=== PATIENT | male | born 1990 | race Hispanic/Latino ===

== ENCOUNTER 2022-05-12 18:05 | Emergency (ER) | payer MEDICAID, OTHER ==
[~2022-05-12] VITALS: Ht 177.8 cm; Wt 104.3 kg
[2022-05-12 18:23] VITALS: BP 138/91
[2022-05-12 19:00] LABS: BASOPHILS % (AUTO) 0.4 % (0.0-5.0); HEMATOCRIT 42.2 % (42-54); LYMPHOCYTES % (AUTO) 44.8 % (21.0-51.0); MEAN CORPUSCULAR HGB CONC 33.6 g/dL (32.0-36.0); MEAN CORPUSCULAR VOLUME 86.1 fL (79-99); MONOCYTES % (AUTO) 8.9 % (3.0-13.0); NEUTROPHILS % (AUTO) 44.6 % (40.0-77.0); PLATELET COUNT (AUTO) 253 K/uL (130-400); RED CELL DISTRIBUTION WIDTH 12.5 % (11.0-15.5); WHITE BLOOD COUNT (AUTO) 7.1 K/uL (4.8-10.8)
[2022-05-12] MEDS ORDERED: LACTATED RINGERS 1000ML 1,000 ML IV ONE (19:00)
[2022-05-12] MEDS ORDERED: KETOROLAC 15MG/ML VIAL (15MG/ML) IV ONE (19:00)
[2022-05-12] MEDS ORDERED: ZOSYN 3.375GM +NS 50ML IVPB ONE (19:00)
[2022-05-12] MEDS ORDERED: IOHEXOL 350 MG/ML 100ML INFUS..BTL IV ONE (19:18)
[2022-05-12 19:24] LABS: APPEARANCE,URINE CLEAR (CLEAR); BILIRUBIN,URINE NEGATIVE (NEGATIVE); COLOR,URINE LIGHT-YELLOW (YELLOW); GLUCOSE, URINE (UA) NEGATIVE (NEGATIVE); KETONES,URINE NEGATIVE (NEGATIVE); LEUKOCYTE ESTERASE ,URINE NEGATIVE Leu/uL (NEGATIVE); NITRATE,URINE NEGATIVE (NEGATIVE); OCCULT BLOOD,URINE NEGATIVE (NEGATIVE); PH,URINE 6.5 (5.0-8.0); PROTEIN,URINE NEGATIVE (NEGATIVE); UROBILINOGEN,URINE 0.2 mg/dL (0.2-1.0)
[2022-05-12 19:25] LABS: CREATININE 1.1 mg/dL (0.5-1.5); POTASSIUM 3.9 mmol/L (3.5-5.1)
[2022-05-12 19:29] LABS: ALBUMIN 4.1 g/dL (3.5-5.0); TOTAL PROTEIN, SERUM 7.3 g/dL (6.0-8.3)
[2022-05-12] MEDS ORDERED: IBUP-1493 PO (21:21)
[2022-05-12 21:26] LABS: MUCUS,URINE RARE LPF (None Seen); RBC,URINE 0-1 /HPF (0-1)
== END 2022-05-12 21:52 | disposition home or self-care (01) ==
LOC: EDH 18:05
DX: R10.32 Left lower quadrant pain (principal)
CPT/HCPCS: 99285; 74177; 96365; 96375; 80053; 83690; 85025; 81001; 36415; J7120; J2543; J1885; Q9967

== ENCOUNTER 2024-07-23 21:02 | Emergency (ER) | payer SELFPAY ==
[~2024-07-23] VITALS: Ht 177.8 cm; Wt 109.8 kg
[~2024-07-23 21:02] MED LIST: IBUP-1493 PO
--- NOTE | 2024-07-23 22:11 | ERN ---
General Chief Complaint: Itching Stated Complaint: SWOLLEN FACE, BODY Time Seen by MD: 21:37 Source: patient, family History of Present Illness Initial Comments Patient is an otherwise healthy 33-year-old male who comes in with complaints of various areas of localized swelling on his body and face. They have been going on for two weeks and he does not know the cause. He does not think it is an allergic reaction to his surroundings as nothing has changed in his house and he has been sometime up and daily [place] miles [place] of here and time here in [facility] and he continues to get these areas of swelling all over his body in both geographic locations. He shows me a photo of some of the lesions and they look like localized hyperemia that you would see with a mosquito bite. He does not think they are mosquito bites. They seemed to start at night because he wakes up with these lesions. Two of them have even been on his lip. Was seen at an urgent care facility two days ago and prescribed Benadryl and prednisone. He took some last night but still had some swelling on his face when he woke up this morning. He is here because he was warned about the possibility of throat swelling and difficulty breathing. Allergies: Coded Allergies: No Known Allergies (Unverified Allergy, Unknown, 05/12/22) Home Meds Active Scripts Ibuprofen (Motrin/Advil) 800 Mg Tab, 800 MG PO TID, #30 TAB Prov:LEX RAM MD 05/12/22 Past Medical History Past Medical History: No Pertinent History Past Surgical History: None Family History Family History: Negative Social History Social History: Negative Constitutional: (-) chills, (-) diaphoresis, (-) fever, (-) malaise, (-) weakness, (-) other documentation EENTM: (-) eye pain, (-) blurred vision, (-) tearing, (-) double vision, (-) ear pain, (-) ear discharge, (-) nose pain, (-) nose congestion, (-) throat pain, (-) Throat swelling, (-) mouth pain, (-) tooth pain, (-) mouth swelling, (-) other documentation Respiratory: (-) cough, (-) orthopnea, (-) short of breath, (-) stridor, (-) wheezing, (-) other documentation Cardiovascular: (-) chest pain, (-) edema, (-) palpitations, (-) syncope, (-) dyspnea on exertion, (-) other documentation Gastrointestinal/Abdominal: (-) nausea, (-) vomiting, (-) diarrhea, (-) abdominal pain, (-) abdominal distention, (-) constipation, (-) rectal bleeding, (-) dark stool/melena, (-) other documentation Musculoskeletal: (-) Neck pain, (-) back pain, (-) Flank Pain, (-) joint pain, (-) joint swelling, (-) muscle pain, (-) muscle stiffness, (-) gout, (-) other documentation Skin: (-) laceration, (-) contusion, (-) abrasion, (-) abscess, (-) rash, (-) change in color, (-) change in hair, (-) change in nails, (-) diaphoresis, (-) dryness, (-) other documentation Neuro: (-) altered mental status, (-) headache, (-) syncope, (-) paralysis, (-) numbness, (-) seizure, (-) pre-existing deficit, (-) tremors, (-) weakness, (-) dizziness, (-) slurred speech, (-) vertigo, (-) other documentation Physical Exam General Appearance: (+) no apparent distress Orientation: (+) oriented x 3 Head/Face Trauma: No Eye: bilateral eye normal inspection, bilateral eye PERRL, bilateral eye EOMI Ear, Nose, Throat: (+) normal ENT inspection, (+) moist mucous membraine, (+) normal pharynx Neck: (+) normal inspection, (+) supple, (+) full range of motion Respiratory: (+) chest non-tender, (+) lungs clear, (+) well ventilated Heart: (+) regular Vascular: (+) no edema, (+) normal peripheral pulse Gastrointestinal: (+) soft, (+) non-tender, (+) bowel sound present Results Laboratory and Microbiology Lab and Micro Result Laboratory Tests Test 07/23/24 22:50 White Blood Count 10.0 K/uL (4.8-10.8) Red Blood Count 4.87 MIL/uL (4.50-6.20) Hemoglobin 14.2 g/dL (14.0-18.0) Hematocrit 41.9 % (42-54) L Mean Corpuscular Volume 86.0 fL (79-99) Mean Corpuscular Hemoglobin 29.2 pg (27.0-33.0) Mean Corpuscular Hemoglobin Concent 33.9 g/dL (32.0-36.0) Red Cell Distribution Width 12.8 % (11.0-15.5) Platelet Count 284 K/uL (130-400) Mean Platelet Volume 10.4 fL (7.5-10.5) Immature Granulocyte % (Auto) 0.2 % (0-1) Neutrophils (%) (Auto) 52.7 % (40.0-77.0) Lymphocytes (%) (Auto) 39.7 % (21.0-51.0) Monocytes (%) (Auto) 6.2 % (3.0-13.0) Eosinophils (%) (Auto) 0.9 % (0.0-8.0) Basophils (%) (Auto) 0.3 % (0.0-5.0) Neutrophils # (Auto) 5.3 K/uL (1.8-7.7) Lymphocytes # (Auto) 4.0 K/uL (1.0-4.8) Monocytes # (Auto) 0.6 K/uL (0.1-1.0) Eosinophils # (Auto) 0.09 K/uL (0.00-0.70) Basophils # (Auto) 0.03 K/uL (0.00-0.20) Absolute Immature Granulocyte (auto 0.02 K/uL (0-1) Nucleated Red Blood Cells 0.0 % (0.0-0.19) Sodium Level 143 mmol/L (136-145) Potassium Level 3.8 mmol/L (3.5-5.1) Chloride Level 103 mmol/L (101-111) Carbon Dioxide Level 31 mmol/L (21-32) Blood Urea Nitrogen 20 mg/dL (7-18) H Creatinine 1.2 mg/dL (0.5-1.3) Glomerular Filtration Rate Calc 82 mL/min (>90) Random Glucose 119 mg/dL (70-105) H Total Calcium 8.8 mg/dL (8.5-10.1) Total Bilirubin 0.4 mg/dL (0.2-1.0) Aspartate Amino Transf (AST/SGOT) 14 U/L (10-37) Alanine Aminotransferase (ALT/SGPT) 31 U/L (12-78) Alkaline Phosphatase 78 U/L (50-136) Total Protein 7.1 g/dL (6.0-8.3) Albumin 3.9 g/dL (3.5-5.0) MDM Currently the patient does not have any lesions on his body that look like the ones he showed in his photo. The lesions look like they have resolved. I am at a loss to explain them. The fact that they occur at night is suspicious for s ome sort of insect cause. He does not think he has bedbugs or fleas in his home. His is not affected. We will get a chemistry panel and a CBC. asked if there were lab tests we could do for allergies and I told her that that would be difficult. Allergies are mostly tested by skin puncture tests and some serology tests. Patient's CBC and chemistry panel was normal. I do not have a good explanation for the patient's symptoms beyond what is explained above. I recommend the patient see a control specialist or an crozer. It is mysterious that only he has been affected by this as his does not have the lesions and neither do his children. It maybe an allergic reaction to something in the house that only he reacts to but again why would happen into different physical locations I do not have an answer. I will write a prescription for an EpiPen so that the patient can have it with him at all times. ED Course Orders Procedure Category Date Status Time Cbc With Differential LAB 07/23/24 Complete 22:38 Comprehensive LAB 07/23/24 Complete Metabolic Panel 22:38 Vital Signs Date Time Temp Pulse Resp B/P (MAP) Pulse Ox O2 Delivery O2 Flow Rate FiO2 07/23/24 22:31 97.9 71 18 132/78 99 Room Air* 0 21 07/23/24 21:27 97.2 72 20 138/82 99 Room Air DX & DISP Disposition: Discharge Departure Impression: Primary Impression: Skin abnormalities Condition: Stable Scripts Epinephrine (Epipen 2-Espinoza) 0.3 Mg/0.3 Ml Auto.injct 1 SYR IM ONCE for 1 Day, #1 PACKET 0 Refills Prov: GAURAV ARMENDARIZ MD 07/24/24 Additional Instructions: Please follow-up with a control specialist or an crozer. If you do start to feel short of breath and swelling in her throat go to an ED immediately, even after using the EpiPen. Referrals: NONE (PCP) GAURAV ARMENDARIZ MD Jul 23, 2024 22:11
[2024-07-23 22:31] VITALS: TEMP 97.8
[2024-07-23 22:57] LABS: BASOPHILS # (AUTO) 0.03 K/uL (0.00-0.20); BASOPHILS % (AUTO) 0.3 % (0.0-5.0); EOSINOPHILS # (AUTO) 0.09 K/uL (0.00-0.70); EOSINOPHILS % (AUTO) 0.9 % (0.0-8.0); HEMATOCRIT 41.9 % (42-54); IMMATURE GRANULOCYTE ABSOLUTE 0.02 K/uL (0-1); LYMPHOCYTES % (AUTO) 39.7 % (21.0-51.0); MEAN CORPUSCULAR HEMOGLOBIN 29.2 pg (27.0-33.0); MEAN CORPUSCULAR HGB CONC 33.9 g/dL (32.0-36.0); MONOCYTES # (AUTO) 0.6 K/uL (0.1-1.0); MONOCYTES % (AUTO) 6.2 % (3.0-13.0); NEUTROPHILS # (AUTO) 5.3 K/uL (1.8-7.7); NEUTROPHILS % (AUTO) 52.7 % (40.0-77.0); PLATELET COUNT (AUTO) 284 K/uL (130-400); RED BLOOD CELL COUNT(AUTO) 4.87 MIL/uL (4.50-6.20); RED CELL DISTRIBUTION WIDTH 12.8 % (11.0-15.5)
[2024-07-23 23:48] LABS: CREATININE 1.2 mg/dL (0.5-1.3); POTASSIUM 3.8 mmol/L (3.5-5.1)
[2024-07-23 23:49] LABS: ALBUMIN 3.9 g/dL (3.5-5.0); BILIRUBIN,TOTAL 0.4 mg/dL (0.2-1.0); TOTAL PROTEIN, SERUM 7.1 g/dL (6.0-8.3)
[2024-07-24] MEDS ORDERED: EPIN0.3P3 IM (00:03)
[2024-07-24 00:31] VITALS: BP 128/70; PULSE 68; RESP 18; O2SAT 99
== END 2024-07-24 00:37 | disposition home or self-care (01) ==
LOC: EDH 21:02
DX: R22.0 Localized swelling, mass and lump, head (principal); Z79.1 Long term (current) use of non-steroidal anti-inflammatories (NSAID); Z79.899 Other long term (current) drug therapy
CPT/HCPCS: 36415; 80053; 85025; 99283